=== PATIENT | female | born 1985 | race Caucasian/White ===

== ENCOUNTER 2019-07-05 13:32 | Inpatient (IN) ==
[2019-07-05] MEDS ORDERED: SENOKOT PO PRN (14:53)
[2019-07-05] MEDS ORDERED: DESYREL PO PRN (14:53)
[2019-07-05] MEDS ORDERED: IMODIUM PO PRN ×2 (14:53)
[2019-07-05] MEDS ORDERED: DULCOLAX PR PRN (14:53)
[2019-07-05] MEDS ORDERED: SEROQUEL PO PRN (14:53)
[2019-07-05] MEDS ORDERED: NICODERM PATCH TD PRN (14:53)
[2019-07-05] MEDS ORDERED: ZOFRAN IM PRN (14:53)
[2019-07-05] MEDS ORDERED: MOTRIN PO PRN (14:53)
[2019-07-05] MEDS ORDERED: TUBERSOL ID ONE (14:53)
[2019-07-05] MEDS ORDERED: D5W 1,000 ML IV PRN (14:53)
[2019-07-05] MEDS ORDERED: NICOTINE GUM BUCCAL PRN (14:53)
[2019-07-05] MEDS ORDERED: PHENOBARBITAL IV PRN (14:53)
[2019-07-05] MEDS ORDERED: MAALOX PLUS LIQUID PO PRN (14:53)
[2019-07-05] MEDS ORDERED: TYLENOL PO PRN (14:53)
[2019-07-05] MEDS ORDERED: ZOFRAN IV PRN (14:53)
[2019-07-05] MEDS ORDERED: SINEMET 25/100 PO PRN (15:07)
[2019-07-05] MEDS ORDERED: LIBRIUM PO PRN (15:07)
[2019-07-05] MEDS ORDERED: BENTYL PO PRN (15:07)
[2019-07-05] MEDS ORDERED: LIBRIUM PO SCH ×2 (15:15→16:00)
[2019-07-05 15:25] LABS: HEMATOCRIT 33.7 % (37.0-47.0); HEMOGLOBIN 11.6 g/dL (12.0-16.0); MCH 28.4 PG (27-31); MCHC 34.4 g/dL (33-37); MCV 82.6 FL (81-99); MPV 10.7 FL (7.4-10.4); RBC 4.08 XMIL (4.2-5.4); RDW 12.6 % (11.5-14.5); WBC 5.15 X1000 (4.8-10.8)
[2019-07-05 15:59] LABS: AGAP 8; ALBUMIN 4.4 g/dL (3.5-5.0); ALKALINE PHOSPHATASE 66 U/L (32-104); AMYLASE 39 U/L (20-200); BUN 11 mg/dL (8-22); CALCIUM 9.3 mg/dL (8.8-10.2); CHLORIDE 100 mmol/L (98-107); COSMO 281; CREATININE 0.5 mg/dL (0.5-0.9); ESTIMATED GFR > 60; GLUCOSE 103 mg/dL (70-104); GOT 13 U/L (10-30); GPT 11 U/L (10-36); LIPASE 13 U/L (13-60); POTASSIUM 4.3 mmol/L (3.5-5.1); SODIUM 141 mmol/L (136-145); TCO2 33 mmol/L (25-35)
[2019-07-05 16:02] LABS: INR 0.93; PROTIME 12.9 Seconds (11.0-16.0)
[2019-07-05] MEDS: LIBRIUM PO SCH (18:19)
[2019-07-05] MEDS: ZOFRAN ODT PO PRN ×2 (18:19→22:03)
[2019-07-05] MEDS: ROBAXIN PO PRN ×2 (18:20→22:04)
[2019-07-05] MEDS ORDERED: SUBUTEX SL ONE (18:25)
[2019-07-05 19:53] LABS: UR AMPHETAMINES QUAL PRESUMPTIVE POSITIVE (NONE DETECT); UR BARBITUATES QUAL NONE DETECTED (NONE DETECT); UR BENZODIAZEPIN QUAL PRESUMPTIVE POSITIVE (NONE DETECT); UR CANNABINOIDS QUAL NONE DETECTED (NONE DETECT); UR COCAINE QUAL NONE DETECTED (NONE DETECT); UR METHADONE QUAL NONE DETECTED (NONE DETECT); UR METHAMPHETAMINE QUAL PRESUMPTIVE POSITIVE (NONE DETECT); UR OPIATES QUAL PRESUMPTIVE POSITIVE (NONE DETECT); UR OXYCODONE QUAL NONE DETECTED (NONE DETECT); UR PCP QUAL NONE DETECTED (NONE DETECT); UR PROPOXYPHENE QUAL NONE DETECTED (NONE DETECT); UR TCA QUAL NONE DETECTED (NONE DETECT)
[2019-07-05 20:10] LABS: URINE SOURCE CLEAN CATCH
[2019-07-05 20:36] LABS: BILIRUBIN URINE NEGATIVE (NEGATIVE); BLOOD URINE NEGATIVE (NEGATIVE); CLARITY CLEAR (CLEAR); COLOR YELLOW; GLUCOSE URINE NEGATIVE (NEGATIVE); KETONE URINE NEGATIVE (NEGATIVE); LEUKOCYTES URINE NEGATIVE (NEGATIVE); NITRITE URINE NEGATIVE (NEGATIVE); PROTEIN URINE NEGATIVE (NEGATIVE); UROBILINOGEN URINE NORMAL
[2019-07-05] MEDS: ATARAX PO PRN (22:02)
--- NOTE | 2019-07-05 22:02 | HISTORY AND PHYSICAL ---
CHIEF COMPLAINT: Nausea and vomiting. HISTORY OF PRESENT ILLNESS: The patient is a 34-year-old female who presented to [facility] program secondary to nausea, vomiting, abdominal pain, myalgias and shivering chills. She notes that she has been abusing heroin, she needs help stopping. Notes the withdrawal symptoms have become too severe,. She is unable to keep down anything orally,. Has not been sleeping well. SOCIAL HISTORY: The patient is single. She is unemployed and lives at home in [place]. PAST MEDICAL HISTORY: Iron deficiency anemia, chronic anxiety and depression. MEDICATIONS: Iron. ALLERGIES: No known drug allergies. REVIEW OF SYSTEMS: CINA score is 26 secondary to nausea, vomiting, fidgety, unable to sit still, abdominal cramping, body aches, cold chills, frequent sweating, watery eyes, runny nose, frequent sniffing, has paraesthesias and increased oral intake due to her withdrawal symptoms. Denies any fevers, chills, headaches. Denies any blurry vision, change in vision. Denies any focalized numbness, tingling or weakness. Denies any dysuria, frequency, urgency, melena, hematochezia, constipation or diarrhea. PAST SUBSTANCE ABUSE HISTORY: The patient was in treatment in 2010 for methamphetamine and heroin, stayed 6 days. In 2013 she was in treatment again for heroin, stayed 3 days. In 2016 she [facility], remained 6 months and started using again the day that she got out. Substance abuse has caused her to have legal and relationship problems. She is currently on probation for possession and child endangerment. She has worsened financial problems. Started started alcohol at 15, currently drinks rarely. She started marijuana at 14, currently uses 2 to 3 times a week. She started Xanax at 17, currently uses 3 or 4 times a month. She started stimulants methamphetamine at 17, currently smokes daily. She started acid and mushrooms at 17, uses rarely now and has not used in a year. She started inhalational substances with paint and gas at 16, has not used in the year. She started opiates at 18, currently taking heroin IV since 2011. She also abuses pills when she can find them. She started nicotine at age 13, currently smokes a pack a day. PAST FAMILY HISTORY: Noncontributory. PHYSICAL EXAMINATION: VITAL SIGNS: Reviewed and stable. G ENERAL: The patient is awake and alert. She is in no respiratory distress. She is obviously ill appearing. HEENT: Normocephalic. NECK: Supple. CARDIOVASCULAR: Regular rate. No murmurs. CHEST: Clear and nonlabored. EXTREMITIES: Moves all extremities. NEUROLOGIC: No changes. The patient is awake and alert. She is fidgety moving about frequently in the bed, having difficulty concentrating and following instructions. ASSESSMENT: 1. Nausea and vomiting. 2. Abdominal pain. 3. Myalgias. 4. Paresthesias. 5. Paroxysmal sweating. 6. Opiate abuse withdrawal and stabilization. 7. Chronic tobacco abuse. 8. Polysubstance use and abuse. 9. Chronic hepatitis C. PLAN: We will continue the patient in the hospital, place her on Librium taper, continue to follow. Expect we will need to switch her over to Subutex. She states that the Suboxone has made her worse in the past. I expect this is due to Fentanyl or being mixed in her heroin. Discussed this with the patient and we will treat accordingly. cc: Rory Guo MD [facility]
[2019-07-06] MEDS: LIBRIUM PO SCH ×4 (00:24→17:36)
[2019-07-06] MEDS ORDERED: SUBUTEX SL ONE (05:30)
[2019-07-06] MEDS: PROTONIX PO SCH (06:28)
[2019-07-06] MEDS: FOLIC ACID PO SCH (10:24)
[2019-07-06] MEDS: VITAMIN B-1 PO SCH (10:24)
[2019-07-06] MEDS: THERA M PLUS PO SCH (10:24)
--- NOTE | 2019-07-06 19:59 | PROGRESS NOTE ---
DATE: 07/06/2019 SUBJECTIVE: The patient notes that she still feels terrible, but actually feels a little bit better than she did earlier. OBJECTIVE: Vital signs reviewed. Temperature 97 degrees, pulse 98, respiratory 26, BP 107/72.General: The patient is awake, alert. Currently she is in no respiratory distress. HEENT: Normocephalic. Neck supple. Cardiovascular: Regular rate. No murmurs. Chest clear, nonlabored. Abdomen soft, nondistended. Extremities: Moves all extremities. ASSESSMENT: 1. Nausea and vomiting. 2. Abdominal pain. 3. Myalgias. 4. Paresthesias. 5. Paroxysmal sweating. 6. Opiate abuse, withdrawal and stabilization. PLAN: We will continue Librium taper with p.r.n. Subutex, and we will continue counseling. cc: Rory Guo MD
[2019-07-06] MEDS ORDERED: SUBUTEX SL SCH (20:00)
[2019-07-07] MEDS: LIBRIUM PO SCH (02:35)
[2019-07-07] MEDS: ATARAX PO PRN (09:16)
[2019-07-07] MEDS: FOLIC ACID PO SCH (09:16)
[2019-07-07] MEDS: THERA M PLUS PO SCH (09:16)
[2019-07-07] MEDS: VITAMIN B-1 PO SCH (09:17)
[2019-07-07] MEDS: PROTONIX PO SCH (10:23)
[2019-07-07 12:14] VITALS: BP 101/69
[2019-07-07] MEDS ORDERED: LIBRIUM PO SCH (13:00)
[2019-07-07] MEDS ORDERED: SUBUTEX SL SCH (21:00)
--- NOTE | 2019-07-08 05:27 | DISCHARGE SUMMARY ---
ADMISSION DATE: 07/05/2019 DISCHARGE DATE: 07/07/2019 DISCHARGE DIAGNOSES: 1. Chronic tobacco abuse. 2. Medical noncompliance. 3. Nausea and vomiting. 4. Abdominal pain. 5. Myalgias. 6. Paresthesias. 7. Paroxysmal sweating. 8. Opiate abuse withdrawal and stabilization. CONSULTATIONS: None. PROCEDURES: None. BRIEF HOSPITAL COURSE: The patient is a 34-year-old female who presented to the hospital, treated in usual fashion, was placed on Librium taper and was slowly transitioning to Subutex. She seemed to be improving. Her color was better. Her sweating was better. The patient has been asked on multiple occasions to stop going downstairs unaccompanied. Again, she was not found in her room and, therefore, was dismissed from the program. DISPOSITION: Unfortunately, patient was dismissed and, therefore, no full disposition instructions and medications were able to be provided. cc: Rory Guo MD
== END 2019-07-07 12:57 | disposition left against medical advice (07) | DRG 894 ==
LOC: P.MEDSURG 14:41
PROVIDERS: ADMIT Family Medicine; ATTEND Family Medicine